=== PATIENT | female | born 1980 | race African-American/Black ===

== ENCOUNTER 2016-07-25 13:55 | Emergency (ER) | payer OTHER | END 2016-07-25 15:28 | disposition home or self-care (01) | LOC: FER 13:55 | DX: S16.1XXA Strain of muscle, fascia and tendon at neck level, initial encounter (principal); G89.29 Other chronic pain; Z88.2 Allergy status to sulfonamides; X50.1XXA Overexertion from prolonged static or awkward postures, initial encounter | CPT/HCPCS: J1885; J2930 ==

== ENCOUNTER 2016-10-23 08:33 | Emergency (ER) | payer OTHER | END 2016-10-23 09:12 | disposition home or self-care (01) | LOC: FER 08:33 | DX: M54.2 Cervicalgia (principal); M54.5 Low back pain; G89.29 Other chronic pain; Z88.2 Allergy status to sulfonamides; Z79.899 Other long term (current) drug therapy | CPT/HCPCS: J1100; J1885 ==

== ENCOUNTER 2017-01-25 20:28 | Emergency (ER) | payer OTHER | END 2017-01-26 03:25 | disposition home or self-care (01) | LOC: FER 20:28 | DX: G43.909 Migraine, unspecified, not intractable, without status migrainosus (principal); Z88.2 Allergy status to sulfonamides; F17.200 Nicotine dependence, unspecified, uncomplicated; Z79.899 Other long term (current) drug therapy | CPT/HCPCS: J1100; J1170; J1885; J2405; J2765; J2800 ==

== ENCOUNTER 2020-08-29 15:47 | Emergency (ER) | payer MEDICARE ==
[~2020-08-29 15:47] MED LIST: AMITIZA8 MCG PO; ATARAX25 MG PO; BENTYL10 MG PO; CYMBALTA 30MG C30 MG PO; LAMICTAL100 MG PO; MEDROL 4MG DOSEP4 MG PO; PEPCID AC20 MG PO; ROBAXIN750 MG PO; TRAZODONE HCL100 MG PO; VICODIN 10/3251 EACH PO; ZOFRAN4 MG PO
[2020-08-29 17:17] LABS: BILIRUBIN NEGATIVE (NEGATIVE); BLOOD NEGATIVE Ery/uL (NEGATIVE); CLARITY CLOUDY (CLEAR); COLOR YELLOW (YELLOW); GLUCOSE (U) NORMAL (NORMAL); LEUKOCYTES NEGATIVE Leu/uL (NEGATIVE); NITRITE NEGATIVE (NEGATIVE); PROTEIN NEGATIVE (NEGATIVE); SPECIFIC GRAVITY 1.015 (1.001-1.030); UROBILINOGEN 0.2 mg/dL (0.2-1.0); pH 8.5 (5.0-9.0)
[2020-08-29 17:57] LABS: BASOPHIL 0.8 % (0-2); EOSINOPHIL 3.4 % (0-5); HCT 39.7 % (37.0-47.0); HGB 12.5 g/dl (12.5-16.0); LYMPHOCYTE 28.2 % (15-48); MCH 27.2 pg (25.0-31.0); MCHC 31.5 g/dL (32.0-36.0); MCV 86.5 fL (78.0-100.0); MPV 10.1 fL (6.0-9.5); NEUTROPHIL 57.2 % (41-80); NRBC 0; PLT 427 K/uL (150-400); RBC 4.59 M/uL (4.20-5.40); RDW 12.9 % (11.5-14.0); WBC 10.2 K/uL (4.0-10.5)
[2020-08-29 18:09] LABS: CORONAVIRUS 2019 SARS-COV-2 NEGATIVE (NEGATIVE); INFLUENZA A NAA NEGATIVE (NEGATIVE)
[2020-08-29 18:15] LABS: BUN/CREAT RATIO (CALC) 10.6 RATIO; CREATININE 1.04 mg/dL (0.51-0.95); POTASSIUM 4.8 mmol/L (3.5-5.1)
== END 2020-08-29 19:05 | disposition home or self-care (01) ==
LOC: FER 15:47
PROVIDERS: Emergency Medicine
DX: B34.9 Viral infection, unspecified (principal); Z20.822 Contact with and (suspected) exposure to COVID-19; Z88.2 Allergy status to sulfonamides
CPT/HCPCS: 36415; 71045; 80048; 81003; 85025; J3410; U0002

== ENCOUNTER 2021-10-08 14:55 | Emergency (ER) | payer OTHER ==
[2021-10-08] MEDS ORDERED: PREDNISONE 20MG20 MG PO (15:57)
== END 2021-10-08 16:21 | disposition home or self-care (01) ==
LOC: FER 14:55
DX: M54.2 Cervicalgia (principal); G89.29 Other chronic pain; Z88.2 Allergy status to sulfonamides
CPT/HCPCS: 96372; 99283; J1100; J1885

== ENCOUNTER 2021-10-11 16:23 | Emergency (ER) | payer OTHER ==
[~2021-10-11 16:23] MED LIST changes: +PREDNISONE 20MG20 MG PO
[2021-10-11] MEDS ORDERED: PREDNISONE 20MG20 MG PO (16:45)
== END 2021-10-11 17:38 | disposition home or self-care (01) ==
LOC: FER 16:23
DX: M54.2 Cervicalgia (principal); G89.29 Other chronic pain; Z88.2 Allergy status to sulfonamides; X58.XXXA Exposure to other specified factors, initial encounter
CPT/HCPCS: 96372; 99283; J1100; J1885